=== PATIENT | female | born 1940 | race Caucasian/White ===

== ENCOUNTER 2017-05-09 09:35 | Day surgery (SDC) | payer MEDICARE, BC ==
[~2017-05-09] VITALS: Ht 154.9 cm; Wt 104.5 kg
--- NOTE | ~2017-05-09 | OR ---
PATIENT'S NAME: MELY RAZA [facility] AGE: 76 Y [address] ROOM: [place] [address] [place] [facility] [place]: 05/09/2017 OR/Procedure Report DISCHARGE DATE: 05/10/2017 FAMILY PHYSICIAN: Tee Anderson MD ATTENDING PHYSICIAN: Asim Monte SURGEON: Asim Monte MD MANAGER BOOKS: DATE OF PROCEDURE: 05/09/2017 PROCEDURES: Dual chamber pacemaker implantation INDICATION: Paroxysmal atrial fibrillation with manifested pauses in excess of 4 seconds consistent with sick sinus syndrome PROCEDURE/FINDINGS: Ms. Raza was brought to the cardiac laborer/key man in the fasting state and prepped and draped in the normal manner. 1% lidocaine was used for local skin infiltration of the left infraclavicular region. 18 gauge Cook needle was advanced to the left subclavian vein through which an 0.025 wire was placed. Needle was removed. Proximal end of the wire was attached to the surgical gown with a hemostat. Next, a second access point was also obtained with an 18 gauge Cook needle. 0.025 wire was placed. Needle was removed. Proximal end of the wire was attached to the surgical gown with a hemostat. Attention was then turned towards creation of pacemaker pocket where additional 1% lidocaine was given. Next, a #11 blade was used for primary skin incision. Following this using Bovie cautery as well as blunt dissection the pectoralis fascia was identified. This was entered into and dissected both cephalad as well as caudally. The previously placed 0.025 wires were brought through the skin into the pacemaker pocket. First wire had a 7F sheath placed onto it. Wire and dilator were removed. Using fluoroscopic guidance, the right ventricular lead was placed. This is a [employer] [employer] XGIM[employer] lead, model #7740, serial #[id number]. Thresholds were obtained showing an intrinsic R-wave of 9.8 millivolts, impedance of 812 ohms, threshold of 0.4 volts at 0.5 milliseconds pulse width. The anchor sleeve was sewn into the pectoralis muscle using two interrupted sutures of zero of silk. Next, a second 7F sheath was placed onto the remaining wire, wire and dilator were removed. Using fluoroscopic guidance, the right atrial lead was placed. This is a [employer] INGEVITY, model #7741, serial #[id number]. Thresholds were obtained showing intrinsic P wave of 6.4 mV, threshold 0.6 volts at 0.5 milliseconds pulse width, impedance at 631 ohms. Next, the shoulder sleeve was sewn into the pectoralis muscle using two interrupted sutures of zero silk. PATIENT'S NAME: MELY RAZA [facility] AGE: 76 Y [address] ROOM: [place] [address] [place] [facility] [place]: 05/09/2017 OR/Procedure Report DISCHARGE DATE: 05/10/2017 FAMILY PHYSICIAN: Tee Anderson MD ATTENDING PHYSICIAN: Asim Monte Following this, both of these leads were then connected to the pacemaker generator which is also a [employer] ESSENTIO model # L111, serial # [id number]. The generator with the connected leads were placed into the pacemaker pocket. Overlying subcutaneous tissue was closed with 2-0 Vicryl in a running fashion. Next, the subcuticular layer was closed with 4.0 Vicryl in running fashion. Following this, Steri-Strips were applied as well as a pressure dressing and a Tegaderm dressing. A shoulder immobilizer had been placed on the patient prior to the start of this procedure. It was anchored following the conclusion of the study. CONCLUSION: 1. Dual chamber pacemaker implantation for sick sinus syndrome. 2. Patient is instructed not to use her left arm for one week. 3. Chest x-ray is pending at the time of this dictation. 4. The patient will be instructed on the use of the home remote monitoring [place] system. MD HUI PIMENTEL/holden /[id number] CC: Printer CARDIOPULMINARY d: 05/17/17 1039 t: 05/20/17 0913, OPERATIVE SUMMARY
[~2017-05-09 09:35] MED LIST: ACEBUTOLOL HCL400 MG PO; ALDACTONE25 MG PO; BUPROPION HCL150 M1 PO; CATAPRES0.1 MG PO; COZAAR100 MG PO; CPAP INH; LASIX40 MG PO; LEVEMIR100 UNIT/1 SUB-Q; LEVOTHROID (S100 MCG PO; LIPITOR40 MG PO; LOPRESSOR25 MG PO; LOVAZA1 GM PO; MAGNESIUM OXID400 MG PO; METFORMIN HCL1000 MG PO; MYRBETRIQ50 MG PO; NITROSTAT0.4 MG SL; NOVOLOG100 UNIT/M SUB-Q; OMEPRAZOLE20 M1 PO; OXYGEN M-15 INH; PRINIVIL (ZESTRI5 MG PO; TOPAMAX50 MG PO; TRILIPIX135 MG PO; ULTRAM50 MG PO; VICTOZA 3-0.6 MG/0.1 SUB-Q
[2017-05-09] MEDS ORDERED: ASPIRIN325 MG PO (10:46)
--- NOTE | 2017-05-09 18:02 | NUR ---
Patient received from PACU post L. Dual Chamber Pacemaker insertion. L. arm is in an imobilizer x 7 days. Good CMS checks to left arm. Patient up with 1 SBA and steady gait. Received [place] x1 tab in PACU with good relief noted. Dressing to left shoulder insertion site CDI. Plan is discharge to home.
--- NOTE | 2017-05-10 04:05 | NUR ---
Significant events: Pt A/Ox3. VSS. On RA when awake, CPAP with 3L/NC when asleep. Up SBA. L) pacer site CDI, immoblizer in place. [place] x1 for soreness to site. Cooperative with cares. Possible home today.
[2017-05-10] MEDS ORDERED: VASOTEC5 MG PO (06:55)
[2017-05-10] MEDS ORDERED: TRICOR 160 MG160 MG PO (06:56)
[2017-05-10] MEDS ORDERED: FISH OIL 1,0001 EACH PO (06:59)
[2017-05-10] MEDS ORDERED: LOVAZA1 GM PO (07:00)
== END 2017-05-10 09:40 | disposition disaster alternative care site (69) ==
LOC: GSDC 09:35 → GPCU 09:35 → GPOC 10:30 → EDSTATUS 10:30 → GPCU 14:37 → GPOC 16:00 → GSDC 05-10 09:40
PROC: 0JH606Z Insertion of Pacemaker, Dual Chamber into Chest Subcutaneous Tissue and Fascia, Open Approach (ICD-10-PCS; principal; 2017-05-09)
PROC: 02H63JZ Insertion of Pacemaker Lead into Right Atrium, Percutaneous Approach (ICD-10-PCS; 2017-05-09)
PROC: 02HK3JZ Insertion of Pacemaker Lead into Right Ventricle, Percutaneous Approach (ICD-10-PCS; 2017-05-09)
DX: I48.0 Paroxysmal atrial fibrillation (principal); I49.5 Sick sinus syndrome; I10 Essential (primary) hypertension; E11.9 Type 2 diabetes mellitus without complications; E78.5 Hyperlipidemia, unspecified; Z79.899 Other long term (current) drug therapy; Z79.84 Long term (current) use of oral hypoglycemic drugs; Z96.659 Presence of unspecified artificial knee joint
CPT/HCPCS: A9270; C1785; C1898; J0690; J2001; J2250; J3010; J7030

== ENCOUNTER → 2017-05-23 | Outpatient (CLI) | payer MEDICARE, BC ==
[~2017-05-23] MED LIST changes: +ASPIRIN325 MG PO; +FISH OIL 1,0001 EACH PO; +TRICOR 160 MG160 MG PO; +VASOTEC5 MG PO
== END | disposition disaster alternative care site (69) ==
LOC: GRAD 15:07
DX: Z48.812 Encounter for surgical aftercare following surgery on the circulatory system (principal); Z95.0 Presence of cardiac pacemaker